=== PATIENT | male | born 1930 | race Caucasian/White ===

== ENCOUNTER 2019-09-10 15:23 | Outpatient (CLI) | payer MEDICARE, OTHER ==
[2019-09-10 16:28] LABS: Hemoglobin 11.8 g/dL (14.0-18.0); Mean Corpuscular HGB CONC 34.1 g/dL (32.0-36.0); Mean Corpuscular Hemoglobin 35.5 pg (27.0-31.0); Mean Platelet Volume 8.8 fL (7.4-10.4); Platelet Count 154 thou/uL (130-400); RBC Distribution Width 11.9 % (11.5-14.5); Red Blood Cell (RBC) Count 3.31 mill/uL (4.70-6.10); White Blood Cell (WBC) Count 4.2 thou/uL (4.8-10.8)
[2019-09-10 16:29] LABS: Bacteria/HPF None Seen HPF (None Seen); Bilirubin Negative (Negative); Blood, Urine Negative (Negative); Clarity Clear (Clear); Glucose, Urine (Dipstick) Normal (Negative); Leukocyte Negative Leu/uL (Negative); Nitrite Negative (Negative); Protein, Urine (Dipstick) Negative (Neg-Trace); RBC/HPF 0-3 HPF (0-3); Squamous Epithelial None Seen HPF (0-3); WBC/HPF 0-3 HPF (0-3)
[2019-09-10 16:47] LABS: Anion Gap 10 mmol/L (10-20); BUN (Urea Nitrogen) 16 mg/dL (8.4-25.7); Calc. Creatinine Clearance 0 mL/min (70-130); Calcium 8.9 mg/dL (7.8-10.44); Carbon Dioxide 29 mmol/L (23-31); Chloride 102 mmol/L (98-107); Estimated GFR-MDRD 62; Glucose 98 mg/dL (83-110); Potassium 4.6 mmol/L (3.5-5.1); Sodium 136 mmol/L (136-145)
== END 2019-09-10 15:24 | disposition home or self-care (01) ==
LOC: LABBT 15:23
PROVIDERS: ATTEND Urology
DX: Z01.818 Encounter for other preprocedural examination (principal); N40.0 Benign prostatic hyperplasia without lower urinary tract symptoms
CPT/HCPCS: 80048; 81001; 85027; 87086

== ENCOUNTER 2019-09-14 07:12 | Day surgery (SDC) | payer MEDICARE, OTHER ==
[2019-09-10 15:25] VITALS: BMI 24.3
[2019-09-14] MEDS ORDERED: Levofloxacin 500 mg/D5W 100 ml Premix Bag ONE (08:39)
[2019-09-14] MEDS ORDERED: Propofol 500 MG/50 ML VIAL ONE (08:46)
[2019-09-14] MEDS ORDERED: Lidocaine 2% Jelly 5 ML TUBE ONE (08:46)
[2019-09-14] MEDS ORDERED: Fentanyl 100 MCG/2 ML VIAL ONE (08:46)
[2019-09-14] MEDS ORDERED: Oxybutynin 5 MG TAB ONE (10:32)
[2019-09-14] MEDS ORDERED: Ketorolac Tromethamine 30 MG/ML VIAL ONE (10:32)
[2019-09-14] MEDS ORDERED: Phenazopyridine HCl 97.5 MG TABLET ONE (10:40)
--- NOTE | 2019-09-14 11:31 | OP ---
DATE OF PROCEDURE: 09/14/2019 PREOPERATIVE DIAGNOSIS: BPH with lower urinary tract symptoms. POSTOPERATIVE DIAGNOSIS: BPH with lower urinary tract symptoms. PROCEDURES PERFORMED: UroLift and intravesical Botox injection 100 units. COMPLICATIONS: None. BLOOD LOSS: Minimal. ANESTHESIA: TIVA. DESCRIPTION OF PROCEDURE: After informed consent, the patient was taken to the operating room, transferred to the table under his own power. Anesthesia was established. A time-out was performed, ensuring the correct patient, site, and procedure. Preoperative antibiotics were administered. He was prepped and draped in the lithotomy position. A 20-Albanian cystoscope was inserted into the bladder, noting a normal course and caliber of the urethra. He does have coapting lateral lobes with a short prostate channel. The bladder was then entered and systematically examined noting severe trabeculation with no mucosal abnormalities. The cystoscopy bridge was replaced with the UroLith delivery device. The first treatment site was the patient's left side approximately 2 cm distal to the bladder neck. The distal tip of the delivery device was angled laterally approximately 20 degrees of this position to compress the lateral lobe. The trigger was pulled, thereby deploying a needle containing the implant through the prostate. The needle was then retracted, allowing one into the implant to be delivered to the capsular surface of the prostate. The implant was then tensioned to assure capsular seating and removal of slack monofilament. The device was then angled back toward midline and slowly advance proximally about 3 to 4 mm until cystoscopic verification of the monofilament being centered in the delivery bay. The urethral end piece was then affixed to the monofilament, thereby tailoring the size of the implant. Excess filament was then severed. The delivery device was then readvanced into the bladder. The delivery device was then replaced with cystoscope and bridge and the implant location and opening effect were confirmed cystoscopically. The same procedure was then repeated on the right side near the bladder neck pulling the second implant. Two additional implants, third and fourth were delivered just proximal to the verumontanum, again one on the right and one on the left side of the prostate following the same technique. Cystoscopy then revealed no evidence of obstruction with an excellent anterior channel with the irrigation turned off. Total number of implants used, 4. IMPLANT LOCATION SUMMARY: 1. Implant #1: Left proximal prostatic urethra. 2. Implant #2: Right proximal prostatic urethra. 3. Implant #3: Left distal prostatic urethra. 4. Implant #4: Right distal prostatic urethra. I then switched to the standard cystoscope and we prepared 100 units of Botox in 20 mL of sterile water. This was injected in three rows of 6 injections each and then finally 2 injections in the trigone. The bladder was then drained, and an 18-Albanian Garcia catheter was placed with 10 mL instilled in the balloon. This was connected to leg bag. The patient was then awoken from anesthesia, transferred back to his hospital bed and taken to PACU in stable condition, where he will discharge to home upon recovery. Job ID: [id number]
== END 2019-09-14 12:00 | disposition home or self-care (01) ==
LOC: SDC 07:12
PROVIDERS: ATTEND Urology
PROC: 0T7D8DZ Dilation of Urethra with Intraluminal Device, Via Natural or Artificial Opening Endoscopic (ICD-10-PCS; principal; 2019-09-14)
PROC: 3E0K8GC Introduction of Other Therapeutic Substance into Genitourinary Tract, Via Natural or Artificial Opening Endoscopic (ICD-10-PCS; 2019-09-14)
DX: N40.1 Benign prostatic hyperplasia with lower urinary tract symptoms (principal); N13.8 Other obstructive and reflux uropathy; N32.81 Overactive bladder; I10 Essential (primary) hypertension; E78.00 Pure hypercholesterolemia, unspecified; Z87.891 Personal history of nicotine dependence; Z79.1 Long term (current) use of non-steroidal anti-inflammatories (NSAID); Z79.2 Long term (current) use of antibiotics; Z79.82 Long term (current) use of aspirin; Z79.899 Other long term (current) drug therapy; Z95.0 Presence of cardiac pacemaker
CPT/HCPCS: 52287; C9740; J0585; C1889; J1885; J1956; J2704; J3010

== ENCOUNTER 2019-12-10 06:31 | Outpatient (CLI) | payer MEDICARE, OTHER ==
[2019-12-10 15:46] LABS: Hemoglobin 10.9 g/dL (14.0-18.0); Mean Corpuscular HGB CONC 33.1 g/dL (32.0-36.0); Mean Corpuscular Hemoglobin 35.1 pg (27.0-31.0); Mean Platelet Volume 8.6 fL (7.4-10.4); Platelet Count 170 thou/uL (130-400); White Blood Cell (WBC) Count 7.8 thou/uL (4.8-10.8)
[2019-12-10 16:05] LABS: Anion Gap 9 mmol/L (10-20); BUN (Urea Nitrogen) 17 mg/dL (8.4-25.7); Calc. Creatinine Clearance 0 mL/min (70-130); Calcium 8.6 mg/dL (7.8-10.44); Carbon Dioxide 29 mmol/L (23-31); Chloride 98 mmol/L (98-107); Estimated GFR-MDRD 69; Glucose 89 mg/dL (83-110); Potassium 4.3 mmol/L (3.5-5.1); Sodium 132 mmol/L (136-145)
== END 2019-12-10 06:32 | disposition home or self-care (01) ==
LOC: LABBT 06:31
PROVIDERS: ATTEND Urology
DX: Z01.818 Encounter for other preprocedural examination (principal); N31.2 Flaccid neuropathic bladder, not elsewhere classified; R33.9 Retention of urine, unspecified
CPT/HCPCS: 80048; 81001; 85027; 87077; 87086; 87186; 93005; 93010

== ENCOUNTER 2019-12-14 06:24 | Observation (INO) | payer MEDICARE, OTHER ==
[2019-12-14] MEDS ORDERED: Levofloxacin 500 mg/D5W 100 ml Premix Bag ONE (07:47)
[2019-12-14] MEDS ORDERED: Fentanyl 100 MCG/2 ML VIAL ONE (09:05)
[2019-12-14] MEDS ORDERED: Sodium Chloride 0.9% 100 ML ONE (09:07)
[2019-12-14] MEDS ORDERED: cefTRIAXone\\ROCEPHIN 2 GM VIAL ONE (09:07)
[2019-12-14] MEDS ORDERED: Ondansetron HCl/PF 4 MG/2 ML Vial IVP PRN (09:45)
[2019-12-14] MEDS ORDERED: Promethazine HCl 25 MG/ML VIAL IM PRN (09:45)
[2019-12-14] MEDS ORDERED: Promethazine HCl 25 MG/ML VIAL SLOW IVP PRN (09:45)
[2019-12-14] MEDS ORDERED: Ondansetron PF 4 MG/2 ML Vial ONE (10:18)
[2019-12-14] MEDS ORDERED: PROPOFOL 200 MG/20 ML VIAL ONE (10:18)
[2019-12-14] MEDS ORDERED: Dexamethasone 20 MG/5 ML VIAL ONE (10:18)
[2019-12-14] MEDS ORDERED: Ondansetron PF 4 MG/2 ML Vial IVP PRN (10:42)
[2019-12-14] MEDS ORDERED: HYDROcodone/Acetaminophen 5/325 mg Tablet PO PRN (10:42)
[2019-12-14] MEDS ORDERED: Zolpidem Tartrate 5 MG TAB PO PRN (10:42)
[2019-12-14] MEDS ORDERED: Mag-Al 1200 mg/1200 mg/30 ML UDCUP PO PRN (10:42)
[2019-12-14] MEDS ORDERED: hydrALAZINE 20 MG/ML VIAL SLOW IVP PRN (10:42)
[2019-12-14] MEDS ORDERED: Morphine 2 MG/ML SYRINGE SLOW IVP PRN (10:42)
[2019-12-14] MEDS ORDERED: Hyoscyamine Sulfate SL 0.125 mg Tablet SL PRN (10:42)
[2019-12-14] MEDS ORDERED: diphenhydrAMINE 50 MG/ML VIAL IVP PRN (10:42)
--- NOTE | 2019-12-14 15:12 | OP ---
DATE OF PROCEDURE: 12/14/2019 PREOPERATIVE DIAGNOSIS: Urinary retention secondary to large prostate. POSTOPERATIVE DIAGNOSIS: Urinary retention secondary to large prostate. PROCEDURES PERFORMED: Transurethral resection of prostate. ANESTHESIA: General. COMPLICATIONS: None. BLOOD LOSS: Minimal. SPECIMEN: Prostate chips. DESCRIPTION OF PROCEDURE: After informed consent, the patient was taken to the operating room, transferred to the table. Anesthesia was established. A time-out was performed, showing the correct patient, site, and procedure. He was prepped and draped in the lithotomy position. The rigid resectoscope was then easily passed through the urethra down to the prostate, noting high bladder neck and coapting right lobe of the prostate. The bladder was then entered and systematically examined noting severe trabeculation with multiple diverticula throughout. This has the appearance of an end-stage bladder, which we have previously discussed. Both ureteral orifices were identified and effluxing clear urine. Using the resection loop, I resected the midline from the bladder neck back to the verumontanum. I then resected the patient's left side beginning around 2 o'clock extending down to the midline. The right side was then treated beginning around 10 o'clock, bringing down towards midline. Anterior obstructing tissue was then resected. Throughout the procedure, care was taken to avoid resection beyond the verumontanum to avoid injury to the sphincter. Meticulous hemostasis was then achieved. All prostate chips were removed with Ellik evacuator. Through the course of the procedure, I identified and removed three of the UroLift clips. The bladder was then drained and re-examined noting no residual prostate chips and no active bleeding. The scope was then withdrawn, and a 22-Congolese three-way catheter was placed with 30 mL instilled in the balloon. CBI was connected, which was running clear at the end of the procedure. The patient was then awoken from anesthesia, transferred back to his hospital bed and taken to PACU in stable condition, where he will be admitted overnight. Job ID: [id number]
[2019-12-14] MEDS: Ketorolac Tromethamine 30 MG/ML VIAL IVP SCH ×2 (16:16→18:10)
[2019-12-14] MEDS: Sodium Chloride 0.9% 1,000 ML IV SCH (18:11)
[2019-12-14] MEDS: Tamsulosin HCl 0.4 MG CAP PO SCH (20:48)
[2019-12-14] MEDS: Famotidine/PF 20 mg/2ml Vial SLOW IVP SCH (20:48)
[2019-12-14] MEDS: Docusate 100 MG CAP PO SCH (20:48)
[2019-12-14] MEDS ORDERED: Ezetimibe 10 MG TAB PO SCH (21:00)
[2019-12-15] MEDS: Ketorolac Tromethamine 30 MG/ML VIAL IVP SCH ×2 (00:16→05:27)
[2019-12-15] MEDS: Sodium Chloride 0.9% 1,000 ML IV SCH ×2 (00:40→09:36)
[2019-12-15 07:47] VITALS: BP 156/75; TEMP 98.3
[2019-12-15] MEDS ORDERED: cefTRIAXone\\ROCEPHIN 1 GM in Sodium Chloride 0.9% 100 ML IVPB SCH (08:00)
[2019-12-15] MEDS: Famotidine/PF 20 mg/2ml Vial SLOW IVP SCH (08:03)
[2019-12-15] MEDS: Tamsulosin HCl 0.4 MG CAP PO SCH (08:04)
[2019-12-15] MEDS: Docusate 100 MG CAP PO SCH (08:05)
[2019-12-15] MEDS ORDERED: Aspirin 81 mg Enteric Coated Tablet PO SCH (09:00)
[2019-12-15] MEDS ORDERED: Pregabalin 75 MG CAP PO SCH (09:00)
[2019-12-15] MEDS ORDERED: Atorvastatin Calcium 10 MG TAB PO SCH (09:00)
[2019-12-15] MEDS ORDERED: Lisinopril 10 MG TAB PO SCH (09:00)
--- NOTE | 2019-12-15 11:38 | DIS ---
DATE OF ADMISSION: 12/14/2019 DATE OF DISCHARGE: 12/15/2019 DISCHARGE DIAGNOSES: Urinary retention, lower urinary tract symptoms due to enlarged prostate. PROCEDURES PERFORMED: Bipolar transurethral resection of prostate. HOSPITAL COURSE: The patient underwent an uncomplicated bipolar transurethral resection of his prostate. He was managed overnight with continuous bladder irrigation with irrigant staying clear throughout the entire night. The irrigation was turned off the following morning with urine remaining clear. He was having no discomfort, tolerating diet, and ready for discharge home on postop day 1. DISCHARGE MEDICATIONS: Include Bactrim and he will resume all home medications. CONDITION: Stable. DISCHARGE PLAN: Follow up early next week for void trial. Job ID: [id number]
== END 2019-12-15 10:35 | disposition home or self-care (01) ==
LOC: SDC 06:24 → SURG A 09:20
PROVIDERS: ADMIT Urology; ATTEND Urology
PROC: 0VT08ZZ Resection of Prostate, Via Natural or Artificial Opening Endoscopic (ICD-10-PCS; principal; 2019-12-14)
DX: N41.1 Chronic prostatitis (principal); I10 Essential (primary) hypertension; E78.00 Pure hypercholesterolemia, unspecified; Z95.0 Presence of cardiac pacemaker; Z98.52 Vasectomy status; Z98.890 Other specified postprocedural states; Z98.1 Arthrodesis status; Z87.891 Personal history of nicotine dependence; Z79.899 Other long term (current) drug therapy
CPT/HCPCS: 52601; 88305; 96361 ×2; 96374; 96375 ×2; 96376; G0378 ×2; J0696; J1100; J1885; J1956; J2405; J2704; J3010; J3490; S0028